=== PATIENT | male | born 1980 | race Caucasian/White ===

== ENCOUNTER 2020-12-24 21:55 | Emergency (ER) | payer OTHER ==
[~2020-12-24] VITALS: Ht 177.8 cm; Wt 99.8 kg
--- NOTE | 2020-12-24 22:04 | NUR ---
CALLED RT FOR BREATHING TREATMENT
--- NOTE | 2020-12-24 22:05 | NUR ---
SOB X 2 DAYS, RAN OUT OF INHALER, HX OF ASTHMA TO ER BED 6 AWAITING BREATHING TX
[2020-12-24] MEDS: ALBUTEROL FS 2.5 MG/3 ML VIAL.NEB NEB ONE (22:06)
[2020-12-24] MEDS: IPRATROPIUM NEB FS 0.5 MG/2.5 ML AMPUL.NEB NEB ONE (22:06)
[2020-12-24] MEDS ORDERED: IPRATROPIUM NEB FS 0.5 MG/2.5 ML AMPUL.NEB ONE (22:10)
[2020-12-24] MEDS ORDERED: ALBUTEROL FS 2.5 MG/3 ML VIAL.NEB ONE (22:10)
[2020-12-24] MEDS ORDERED: predniSONE 20 MG TABLET ONE (22:31)
[2020-12-24] MEDS: predniSONE 20 MG TABLET PO ONE (22:34)
[2020-12-24] MEDS ORDERED: MOME13HF INH (22:41)
[2020-12-24] MEDS ORDERED: PRED20TA PO (22:41)
[2020-12-24 22:52] VITALS: BP 124/96
--- NOTE | 2020-12-24 22:52 | NUR ---
Patient discharged to home in stable condition. Written and verbal after care instructions given. Patient verbalizes understanding of instruction.
== END 2020-12-24 22:52 | disposition home or self-care (01) ==
LOC: ER 21:58
DX: J45.909 Unspecified asthma, uncomplicated (principal)
CPT/HCPCS: 94644; 99285; J7512

== ENCOUNTER 2021-01-17 03:34 | Emergency (ER) | payer OTHER ==
[~2021-01-17] VITALS: Ht 172.7 cm; Wt 80.7 kg
[~2021-01-17 03:34] MED LIST: MOME13HF INH; PRED20TA PO
--- NOTE | 2021-01-17 03:35 | NUR ---
PT TO ER C/O SOB, RAN OUT OF INHALER. PT EXTREMELY UNCOOPERATIVE UPON ARRIVAL. PT NOT COOPERATIVE WITH TRIAGE OR ASSESSMENT. PT IS CURSING AND YELLING AT STAFF. PT THREATENENING TO HIT STAFF. PT TO ER BED 6. DR SALMERON AT BEDSIDE FOR EXAM.
--- NOTE | 2021-01-17 03:36 | NUR ---
PT REFUSING VITAL SIGNS. DR SALMERON NOTIFIED.
[2021-01-17] MEDS ORDERED: ALBUTEROL FS 2.5 MG/3 ML VIAL.NEB NEB ONE (04:00)
[2021-01-17] MEDS ORDERED: IPRATROPIUM NEB FS 0.5 MG/2.5 ML AMPUL.NEB NEB ONE (04:00)
== END 2021-01-17 05:16 | disposition home or self-care (01) ==
LOC: ER 03:38
DX: J45.909 Unspecified asthma, uncomplicated (principal); Z79.899 Other long term (current) drug therapy
CPT/HCPCS: 94799-TC

== ENCOUNTER 2022-12-21 20:49 | Emergency (ER) | payer OTHER ==
[~2022-12-21] VITALS: Ht 177.8 cm; Wt 90.7 kg
--- NOTE | 2022-12-21 21:49 | NUR ---
CAME W/ CC OF ABCESS ON RIGHT SHOULDER BLADE X 1WEEK. NO PAIN MEDS TAKEN. PATIENT PAIN SCALE 10/10. PLACED COMFORTABLY IN BED. VITALS CHECKED.
--- NOTE | 2022-12-21 21:51 | NUR ---
[employer] OFFICE SWEEPER AT PT'S BEDSIDE FOR I&D
[2022-12-21] MEDS ORDERED: CLIN300C12 PO (21:57)
[2022-12-21] MEDS ORDERED: IBUP-1955 PO (21:57)
[2022-12-21 22:06] VITALS: BP 146/82
== END 2022-12-21 22:06 | disposition home or self-care (01) ==
LOC: ER 20:52
DX: L02.413 Cutaneous abscess of right upper limb (principal); J45.909 Unspecified asthma, uncomplicated; Z88.8 Allergy status to other drugs, medicaments and biological substances; Z60.2 Problems related to living alone; Z79.52 Long term (current) use of systemic steroids; Z79.899 Other long term (current) drug therapy